=== PATIENT | female | born 1960 | race Caucasian/White ===

== ENCOUNTER 2017-07-30 08:00 | Inpatient (IN) | payer OTHER ==
[2017-07-30] MEDS ORDERED: GABAPENTIN 300 MG CAPSULE (FP) ONE (10:32)
[2017-07-30] MEDS ORDERED: CELECOXIB 200 MG CAPSULE ONE (10:33)
[2017-07-30 10:42] VITALS: BMI 27.6
[2017-07-30] MEDS ORDERED: GABAPENTIN 300 MG CAPSULE (FP) PO ONE ×2 (10:50→11:45)
[2017-07-30] MEDS ORDERED: DEXAMETHASONE SOD PHOSPHATE/PF 10 MG/ML SDV ONE (10:53)
[2017-07-30] MEDS ORDERED: MIDAZOLAM HCL 2 MG/2 ML SINGLE DOSE VIAL ONE ×2 (10:53→14:06)
[2017-07-30] MEDS ORDERED: SODIUM CHLORIDE 0.9% P/F 10 ML VIAL IJ ONE (10:54)
[2017-07-30] MEDS ORDERED: ROPIVACAINE HCL 0.5% 30ML VIAL ONE (10:54)
[2017-07-30] MEDS ORDERED: CELECOXIB 200 MG CAPSULE PO ONE (11:45)
[2017-07-30] MEDS ORDERED: BUPIVACAINE HCL/PF 0.5% (5MG/ML) 10 ML VIAL ONE (12:12)
[2017-07-30] MEDS ORDERED: VANCOMYCIN 1,000 MG VIAL (RESTRICTED TO ID ONLY) ONE (14:06)
[2017-07-30] MEDS ORDERED: TRANEXAMIC ACID 1000 MG/10 ML VIAL ONE ×2 (14:12→15:16)
[2017-07-30] MEDS ORDERED: ceFAZolin SODIUM 1 GM VIAL ONE (15:25)
[2017-07-30] MEDS ORDERED: MAG HYDROX/AL HYDROX/SIMETH 30 ML UNIT-DOSE CUP PO PRN (16:49)
[2017-07-30] MEDS ORDERED: VANCOMYCIN 1,250 MG in DEXTROSE 5%-WATER - 250 ML IVPB ONE (16:49)
[2017-07-30] MEDS ORDERED: ONDANSETRON 4 MG/2 ML VIAL IVPUSH PRN (16:49)
[2017-07-30] MEDS ORDERED: DEXAMETHASONE SOD PHOSPHATE 4 MG/1 ML VIAL ONE (16:49)
[2017-07-30] MEDS ORDERED: MAGNESIUM HYDROX 2400MG/30ML ORAL SUSPENSION 30 ML CUP PO PRN (16:49)
[2017-07-30] MEDS ORDERED: ONDANSETRON 4 MG/2 ML VIAL ONE (16:49)
--- NOTE | 2017-07-30 16:54 | OP ---
Operative Note - Note: Operative Date: 07/30/17 Pre-Operative Diagnosis: Left knee DJD Operation: Left total knee replacement Implants: [employer] [place] Tri[employer] PS Cemented. Femur - 4. Tibia - 5. Poly - 9mm. Patella - 27mm Post-Operative Diagnosis: Same as Pre-op Surgeon: Renny Alan Applications Coordinator: Rowdy Alan Anesthesia: Spinal Operative Report Dictated: Yes
[2017-07-30] MEDS ORDERED: LACTATED RINGERS SOLUTION 1,000 ML IV SCH (17:00)
[2017-07-30] MEDS ORDERED: oxyCODONE HCL 5 MG TABLET PO PRN (17:00)
[2017-07-30] MEDS ORDERED: ACETAMINOPHEN 325 MG TABLET (FP) ONE (17:37)
[2017-07-30] MEDS ORDERED: ACETAMINOPHEN 325 MG TABLET (FP) PO ONE (17:47)
[2017-07-30] MEDS: oxyCODONE HCL 5 MG TABLET PO PRN ×2 (19:52→23:56)
[2017-07-30] MEDS: ASPIRIN 325 MG TABLET PO SCH (21:48)
[2017-07-30] MEDS: GABAPENTIN 300 MG CAPSULE (FP) PO SCH (21:48)
[2017-07-30] MEDS: oxyCODONE HCL 10 MG SUSTAINED ACTING TABLET PO SCH (21:48)
[2017-07-30] MEDS: ACETAMINOPHEN 325 MG TABLET (FP) PO SCH (21:53)
[2017-07-30] MEDS: SENNOSIDES/DOCUSATE COMBO (SENNA PLUS) TABLET (UD) PO SCH (21:53)
[2017-07-30] MEDS ORDERED: CEFAZOLIN 1 GM PUSH 1 GM/10 ML DISP.SYRIN IVPUSH SCH (22:00)
[2017-07-30] MEDS: CEFAZOLIN 1 GM/D5W 1 GM/50 ML BAG IVPB SCH (22:59)
--- NOTE | 2017-07-31 00:02 | CONSULT ---
Consultation: REQUESTING PROVIDER: Dr. Alan CONSULT REQUEST: We have been asked to medically evaluate this patient for ( Medical Management). HISTORY OF PRESENT ILLNESS: This is a 56 y/o woman with a PMHx of: GERD, DJD. Patient is s/p L-TKR POD #0. Patient reports having elective surgery to her L-knee secondary to DJD. Patient reports having tightness with mild discomfort to her L- knee. Patient denies numbness or tingling to her leg/foot. Patient reports ambulating to the bathroom with nursing assistance and her walker. Patient has passed flatulence, no BM since surgery. Patient reports tolerating food and po liquids. Patient denies fever, chills, cough, SOB, CP, palpitations, AP, N/V/D, constipation, dysuria. Past Medical History: GERD OA DJD Past Surgical History: Cholecystectomy Cervical Spine L- Foot Social History: Tobacco: Former Alcohol: Socially Drugs: Marijuana Allergies: Allergy/AdvReac Type Severity Reaction Status Date / Time codeine Allergy Severe Itching Verified 07/30/17 10:52 oxycodone AdvReac Intermediate Itching Verified 07/30/17 10:52 Home Medications: Medication Instructions Recorded Oxycodone HCl/Acetaminophen 1 each PO ASDIR PRN 07/22/17 [Percocet 10-325 mg Tablet] REVIEW OF SYSTEMS: CONSTITUTIONAL: Absent: fever, chills, diaphoresis, generalized weakness, malaise, loss of appetite, weight change HEENT: Absent: rhinorrhea, nasal congestion, throat pain, throat swelling, difficulty swallowing, mouth swelling, ear pain, eye pain, visual changes CARDIOVASCULAR: Absent: chest pain, syncope, palpitations, irregular heart rate, lightheadedness , peripheral edema RESPIRATORY: Absent: cough, shortness of breath, dyspnea with exertion, orthopnea, wheezing, stridor, hemoptysis GASTROINTESTINAL: Absent: abdominal pain, abdominal distension, nausea, vomiting, diarrhea, constipation, melena, hematochezia GENITOURINARY: Absent: dysuria, frequency, urgency, hesitancy, hematuria, flank pain, genital pain MUSCULOSKELETAL: arthralgia, right knee pain Absent: myalgia, joint swelling, back pain, neck pain SKIN: Absent: rash, itching, pallor HEMATOLOGIC/IMMUNOLOGIC: Absent: easy bleeding, easy bruising, lymphadenopathy, frequent infections ENDOCRINE: Absent: unexplained weight gain, unexplained weight loss, heat intolerance, cold intolerance NEUROLOGIC: Absent: headache, focal weakness or paresthesias, dizziness, unsteady gait, seizure, mental status changes, bladder or bowel incontinence PSYCHIATRIC: Absent: anxiety, depression, suicidal or homicidal ideation, hallucinations. PHYSICAL EXAMINATION Vital Signs - 24 hr 07/30/17 07/30/17 07/30/17 10:38 16:49 16:50 Temperature 98.5 F 97.8 F Pulse Rate 72 54 L 52 L Respiratory 18 18 18 Rate Blood Pressure 185/91 157/89 160/80 O2 Sat by Pulse 99 99 Oximetry (%) 07/30/17 07/30/17 07/30/17 16:55 17:00 17:15 Temperature Pulse Rate 71 59 L 47 L Respiratory 18 18 18 Rate Blood Pressure 164/87 169/80 146/82 O2 Sat by Pulse 99 98 100 Oximetry (%) 07/30/17 07/30/17 07/30/17 17:30 17:45 18:00 Temperature Pulse Rate 50 L 61 58 L Respiratory 18 18 18 Rate Blood Pressure 139/80 127/87 134/80 O2 Sat by Pulse 100 99 100 Oximetry (%) 07/30/17 07/30/17 07/30/17 18:15 18:26 18:28 Temperature Pulse Rate 54 L 53 L 53 L Respiratory 18 18 18 Rate Blood Pressure 138/80 151/77 151/77 O2 Sat by Pulse 95 96 Oximetry (%) 07/30/17 19:00 Temperature 97.9 F Pulse Rate 62 Respiratory 18 Rate Blood Pressure 135/76 O2 Sat by Pulse 96 Oximetry (%) GENERAL: Awake, alert, and fully oriented, in no acute distress. HEAD: Normal with no signs of trauma. EYES: Pupils equal, round and reactive to light, extraocular movements intact, sclera anicteric, conjunctiva clear. No lid lag. EARS, NOSE, THROAT: Ears normal, nares patent, oropharynx clear without exudates. Moist mucous membranes. NECK: Normal range of motion, supple without lymphadenopathy, JVD, or masses. LUNGS: Breath sounds equal, clear to auscultation bilaterally. No wheezes, and no crackles. No accessory muscle use. HEART: Regular rate and rhythm, normal S1 and S2 without murmur, rub or gallop. ABDOMEN: Soft, nontender, not distended, normoactive bowel sounds, no guarding, no rebound, no masses. No hepatomegaly or splenomegaly. MUSCULOSKELETAL: Normal range of motion at RUE, LUE, RLE joints. No bony deformities or tenderness. No CVA tenderness. LROM at LLE., +surgical dressing dry and intact, icepack. UPPER EXTREMITIES: 2+ pulses, warm, well-perfused. No cyanosis. No clubbing. Cap refill <2 seconds. No peripheral edema. LOWER EXTREMITIES: 2+ pulses, warm, well-perfused. No calf tenderness. No peripheral edema. NEUROLOGICAL: Cranial nerves II-XII intact. Normal speech. Gait not observed. PSYCHIATRIC: Cooperative. Good eye contact. Appropriate mood and affect. SKIN: Warm, dry, normal turgor, no rashes or lesions noted. Active Medications Generic Name Dose Route Start Last Admin Trade Name Freq PRN Reason Stop Dose Admin Acetaminophen 650 mg 07/30/17 18:00 07/30/17 21:53 Tylenol - PO 650 mg QID CLINT Administration Al Hydroxide/Mg Hydroxide 30 ml 07/30/17 16:49 Mylanta Oral Suspension - PO Q4H PRN DYSPEPSIA Aspirin 325 mg 07/30/17 22:00 07/30/17 21:48 Asa - PO 325 mg BID CLINT Administration Fentanyl 50 mcg 07/30/17 17:00 Sublimaze Injection - IVPUSH [id number] PRN PAIN Gabapentin 300 mg 07/30/17 22:00 07/30/17 21:48 Neurontin - PO 300 mg BID CLINT Administration Lactated Ringer's 1,000 mls @ 125 mls/hr 07/30/17 17:00 Lactated Ringers Solution IV 07/31/17 06:00 ASDIR CLINT Vancomycin HCl 1,250 mg/ 250 mls @ 166.667 mls/hr 07/31/17 02:00 Dextrose IVPB 07/31/17 03:29 ONCE ONE Protocol Cefazolin Sodium 1 gm in 50 mls @ 100 mls/hr 07/30/17 22:45 07/30/17 22:59 Ancef 1 Gm Premixed Ivpb - IVPB 07/31/17 07:14 100 mls/hr Q8H CLINT Administration Magnesium Hydroxide 30 ml 07/30/17 16:49 Milk Of Magnesia - PO PRN PRN CONSTIPATION Multivitamins/Minerals/Vitamin C 1 tab 07/31/17 10:00 Tab-A-Vit - PO DAILY CLINT Ondansetron HCl 4 mg 07/30/17 16:49 Zofran Injection IVPUSH Q6H PRN NAUSEA Oxycodone HCl 10 mg 07/30/17 17:00 07/30/17 23:56 Roxicodone - PO 10 mg Q3H PRN Administration PAIN LEVEL 6-10 Oxycodone HCl 10 mg 07/30/17 22:00 07/30/17 21:48 Oxycontin - PO 08/02/17 17:01 10 mg BID CLINT Administration Pantoprazole Sodium 40 mg 07/31/17 10:00 Protonix - PO DAILY CLINT Senna/Docusate Sodium 1 tablet 07/30/17 22:00 07/30/17 21:53 Pericolace - PO 1 tablet BID CLINT Administration ASSESSMENT/PLAN: 1. s/p Left Total Knee Replacement - Continue ortho regimen - PT - Incentive Spirometry - Monitor CBC, BMP in am - Oxycodone prn- (patient reports to nurse she is on Oxycodone and takes benadryl prn for itching- denies anaphylaxis) - DVT/PPI prophylaxis 2. GERD - Continue PPI Dispo: We will continue to follow the patient. Thank you for this consultative opportunity. Problem List - Problems (1) Status post left knee replacement Code(s): Z96.652 - PRESENCE OF LEFT ARTIFICIAL KNEE JOINT (2) DJD (degenerative joint disease) Code(s): M19.90 - UNSPECIFIED OSTEOARTHRITIS, UNSPECIFIED SITE (3) GERD (gastroesophageal reflux disease) Code(s): K21.9 - GASTRO-ESOPHAGEAL REFLUX DISEASE WITHOUT ESOPHAGITIS (4) DVT prophylaxis Code(s): RNN5456 - Visit type - Emergency Visit Emergency Visit: Yes ED Registration Date: 07/30/17 Care time: The patient presented to the Emergency Department on the above date and was hospitalized for further evaluation of their emergent condition. - New Patient This patient is new to me today: Yes Date on this admission: 07/30/17 - Critical Care Critical Care patient: No
[2017-07-31] MEDS ORDERED: VANCOMYCIN 1,250 MG in DEXTROSE 5%-WATER - 250 ML IVPB ONE (02:00)
[2017-07-31] MEDS: oxyCODONE HCL 5 MG TABLET PO PRN ×5 (03:03→17:12)
[2017-07-31] MEDS: CEFAZOLIN 1 GM/D5W 1 GM/50 ML BAG IVPB SCH (06:10)
--- NOTE | 2017-07-31 06:46 | OP ---
DATE OF OPERATION: 07/30/2017 SURGEON: Renny Alan MD AGGREGATE CONVEYOR OPERATOR: Rowdy Alan MD PREOPERATIVE DIAGNOSIS: Tricompartment osteoarthritis, left knee. POSTOPERATIVE DIAGNOSIS: Tricompartment osteoarthritis, left knee. OPERATION PERFORMED: Left posterior-stabilized, cemented total knee arthroplasty ([place] Triathlon). ANESTHESIA: Spinal with conscious sedation and adductor canal block. TOURNIQUET TIME: 90 minutes. DESCRIPTION OF PROCEDURE: Patient correctly identified, brought into the operating room. The left lower extremity was prepped, free draped in the routine manner with Betadine scrub solution, wiped off with alcohol, DuraPrep applied. Midline incision utilized. The dissection was taken through the skin and subcutaneous tissue down to the quadriceps tendon. The tendon was split longitudinally, and a medial parapatellar incision utilized around the patella to expose the arthritic knee. Gross tricompartmental arthritis was noted. The patella was capsized laterally. The cruciate ligaments were transected. The proximal tibia dissected appropriately subperiosteally of the medial side. The patella was cut free hand from patellar ligament to quadriceps tendon. The appropriate jig was applied for a 27-mm patella button. The tibia was cut to neutral. The femur was cut using the appropriate jig system. The sizings were as follows: Femur size 4, tibia size 5, and a size 9 polyethylene spacer and the trialing components gave full extension, full flexion, complete stability in the coronal and sagittal plane at both of these levels. All bone cuts were made with the jig system. The mechanical axis restored, and we proximalized the joint line 2 mm because of poor bone bed for cementation on the lateral side. This required more bone in order to have cementation appropriately. The cementing was in 1 stage, femur, patella and tibia. Once this had been performed, the wounds were thoroughly lavaged. All extraneous cement was removed. Patella tracking was normal with a negative thumb test, and the ligaments coronal and sagittal plain, was completely stable throughout all ranges of motion in both the coronal and sagittal planes. A 9-mm definitive polyethylene posterior-stabilized implant inserted. No complications. The wounds were closed as follows: Quadriceps tendon, fascia ends, parapatellar tendon 1 Vicryl, subcutaneous 1 and 2-0 Vicryl, skin 3-0 Monocryl with Steri-Strips. No drains. Operation went well. No complications. MD YIFAN Mas/[id number]
[2017-07-31 08:27] LABS: MCH 29.6 pg (25.7-33.7); MEAN CELL VOLUME 87.1 fl (80-96); MEAN PLT VOLUME 10.7 fl (7.5-11.1); PLATELET COUNT 202 K/MM3 (134-434); RDW 13.1 % (11.6-15.6); WHITE BLOOD COUNT 16.4 K/mm3 (4.0-10.8)
[2017-07-31 08:33] LABS: ANION GAP 6 (8-16); CALCIUM 8.8 mg/dl (8.4-10.2); CO2 26 mmol/L (22-28); CREATININE 0.6 mg/dl (0.6-1.3); GLUCOSE,RANDOM 130 mg/dl (74-106)
[2017-07-31] MEDS: ASPIRIN 325 MG TABLET PO SCH ×2 (09:06→21:21)
[2017-07-31] MEDS: SENNOSIDES/DOCUSATE COMBO (SENNA PLUS) TABLET (UD) PO SCH ×2 (09:06→21:21)
[2017-07-31] MEDS: oxyCODONE HCL 10 MG SUSTAINED ACTING TABLET PO SCH ×2 (09:06→21:22)
[2017-07-31] MEDS: GABAPENTIN 300 MG CAPSULE (FP) PO SCH ×2 (09:06→21:21)
[2017-07-31] MEDS: MULTIVITAMINS (DAILY MVI) TABLET (FP) PO SCH (09:07)
[2017-07-31] MEDS: PANTOPRAZOLE 40 MG TABLET (FP) PO SCH (09:07)
[2017-07-31] MEDS: ACETAMINOPHEN 325 MG TABLET (FP) PO SCH ×4 (09:08→21:22)
--- NOTE | 2017-07-31 09:32 | PN ---
Physical Exam: SUBJECTIVE: Patient seen and examined, reports pain to left knee, denies any paresthesia to the extremity OBJECTIVE:This is a 56 y/o woman with a PMHx of: GERD, DJD, patient is s/p left TKR, post op day 1, Dr Alan Vital Signs Period Temp Pulse Resp BP Sys/Wallace Pulse Ox Last 24 Hr 97.8 F-98.5 F 47-98 18-18 127-185/76-91 95-100 GENERAL: The patient is awake, alert, and fully oriented, in no acute distress. HEAD: Normal with no signs of trauma. EYES: PERRL, extraocular movements intact, sclera anicteric, conjunctiva clear. No ptosis. ENT: Ears normal, nares patent, oropharynx clear without exudates, moist mucous membranes. NECK: Trachea midline, full range of motion, supple. LUNGS: Breath sounds equal, clear to auscultation bilaterally, no wheezes, no crackles, no accessory muscle use. HEART: Regular rate and rhythm, S1, S2 without murmur, rub or gallop. ABDOMEN: Soft, nontender, nondistended, normoactive bowel sounds, no guarding, no rebound, no hepatosplenomegaly, no masses. EXTREMITIES: 2+ pulses, warm, well-perfused, no edema. LEFT LOWER EXTREMITY: dressing cdi, scd/meaghan less than 3 second capillary refill , + 3 pedal pulse NEUROLOGICAL: Cranial nerves II through XII grossly intact. Normal speech, gait not observed. PSYCH: Normal mood, normal affect. SKIN: Warm, dry, normal turgor, no rashes or lesions noted Laboratory Results - last 24 hr 07/31/17 07/31/17 07:00 07:00 WBC 16.4 H RBC 4.46 Hgb 13.2 Hct 38.8 MCV 87.1 MCH 29.6 MCHC 34.0 RDW 13.1 Plt Count 202 MPV 10.7 Sodium 138 Potassium 4.4 Chloride 106 Carbon Dioxide 26 Anion Gap 6 L BUN 11 Creatinine 0.6 Random Glucose 130 H Calcium 8.8 Active Medications Generic Name Dose Route Start Last Admin Trade Name Freq PRN Reason Stop Dose Admin Acetaminophen 650 mg 07/30/17 18:00 07/31/17 09:08 Tylenol - PO 650 mg QID CLINT Administration Al Hydroxide/Mg Hydroxide 30 ml 07/30/17 16:49 Mylanta Oral Suspension - PO Q4H PRN DYSPEPSIA Aspirin 325 mg 07/30/17 22:00 07/31/17 09:06 Asa - PO 325 mg BID CLINT Administration Fentanyl 50 mcg 07/30/17 17:00 Sublimaze Injection - IVPUSH [id number] PRN PAIN Gabapentin 300 mg 07/30/17 22:00 07/31/17 09:06 Neurontin - PO 300 mg BID CLINT Administration Ketorolac Tromethamine 30 mg 07/31/17 09:28 Toradol Injection - IVPUSH 07/31/17 09:29 ONCE ONE Magnesium Hydroxide 30 ml 07/30/17 16:49 Milk Of Magnesia - PO PRN PRN CONSTIPATION Multivitamins/Minerals/Vitamin C 1 tab 07/31/17 10:00 07/31/17 09:07 Tab-A-Vit - PO 1 tab DAILY CLINT Administration Ondansetron HCl 4 mg 07/30/17 16:49 07/31/17 06:10 Zofran Injection IVPUSH 4 mg Q6H PRN Administration NAUSEA Oxycodone HCl 10 mg 07/30/17 17:00 07/31/17 09:07 Roxicodone - PO 10 mg Q3H PRN Administration PAIN LEVEL 6-10 Oxycodone HCl 10 mg 07/30/17 22:00 07/31/17 09:06 Oxycontin - PO 08/02/17 17:01 10 mg BID CLINT Administration Pantoprazole Sodium 40 mg 07/31/17 10:00 07/31/17 09:07 Protonix - PO 40 mg DAILY CLINT Administration Senna/Docusate Sodium 1 tablet 07/30/17 22:00 07/31/17 09:06 Pericolace - PO 1 tablet BID CLINT Administration ASSESSMENT/PLAN: 1. s/p Left Total Knee Replacement - PT - Incentive Spirometry - reports inadequate pain relief, pt reports taking percocet daily for pain 10/ 325mg and smokes marijuanna daily, discussed with anesthsia, oxycontin was increased to 15mg per Dr Rodriguez - Monitor CBC, BMP in am 2. GERD - Continue PPI dispo: We will continue to follow the patient. Thank you for this consultative opportunity. Visit type - Emergency Visit Emergency Visit: No - New Patient This patient is new to me today: Yes Date on this admission: 07/31/17 - Critical Care Critical Care patient: No - Discharge Referral Referred to [facility] Med P.C.: No
[2017-07-31] MEDS ORDERED: KETOROLAC TROMETHAMINE 30 MG/1 ML VIAL IVPUSH ONE (10:00)
--- NOTE | 2017-07-31 10:56 | PN ---
Progress Note (short form) - Note Progress Note: 56F POD1 s/p left TKR under spinal anesthetic with peripheral nerve blocks doing well. Given that patient usually takes narcotics at home, will increase oxycodone prn dose. Sensory and motor function intact in bilateral lower extremities. Pt does not report any anesthetic complications.
[2017-08-01 02:20] VITALS: TEMP 98.5
[2017-08-01 06:27] VITALS: BP 152/80; PULSE 82
[2017-08-01] MEDS: oxyCODONE HCL 5 MG TABLET PO PRN (07:49)
[2017-08-01 08:20] LABS: MCH 29.8 pg (25.7-33.7); MCHC 34.1 g/dl (32.0-36.0); MEAN CELL VOLUME 87.4 fl (80-96); MEAN PLT VOLUME 10.6 fl (7.5-11.1); PLATELET COUNT 186 K/MM3 (134-434); RDW 13.4 % (11.6-15.6)
[2017-08-01] MEDS: MULTIVITAMINS (DAILY MVI) TABLET (FP) PO SCH (09:08)
[2017-08-01] MEDS: PANTOPRAZOLE 40 MG TABLET (FP) PO SCH (09:08)
[2017-08-01] MEDS: SENNOSIDES/DOCUSATE COMBO (SENNA PLUS) TABLET (UD) PO SCH (09:08)
[2017-08-01] MEDS: GABAPENTIN 300 MG CAPSULE (FP) PO SCH (09:08)
[2017-08-01] MEDS: ACETAMINOPHEN 325 MG TABLET (FP) PO SCH (09:08)
[2017-08-01] MEDS: ASPIRIN 325 MG TABLET PO SCH (09:09)
[2017-08-01] MEDS: oxyCODONE HCL 10 MG SUSTAINED ACTING TABLET PO SCH (09:09)
--- NOTE | 2017-08-01 10:51 | DS ---
Physical Exam: SUBJECTIVE: Patient seen and examined,ambulatory throughout nursing station with walker, reports minimal pain to the left lower extremity, patient denies any paresthesia. tolerating meals, denies any chest pain, shortness of breath, nausea or vomiting. OBJECTIVE: Patient is a 56 y/o woman with a PMHx of: GERD, DJD. Patient is s/ p L-TKR POD #2, Dr Alan, spinal anesthesia. Patient reports having elective surgery to her L-knee secondary to DJD. Vital Signs Temperature 98.5 F 08/01/17 06:00 Pulse Rate 82 08/01/17 06:00 Respiratory Rate 18 08/01/17 07:50 Blood Pressure 152/80 08/01/17 06:00 O2 Sat by Pulse Oximetry (%) 94 L 08/01/17 02:19 PHYSICAL EXAM GENERAL: The patient is awake, alert, and fully oriented, in no acute distress. HEAD: Normal with no signs of trauma. EYES: PERRL, extraocular movements intact, sclera anicteric, conjunctiva clear. ENT: Ears normal, nares patent, oropharynx clear without exudates, moist mucous membranes. NECK: Trachea midline, full range of motion, supple. LUNGS: Breath sounds equal, clear to auscultation bilaterally, no wheezes, no crackles, no accessory muscle use. HEART: Regular rate and rhythm, S1, S2 without murmur, rub or gallop. ABDOMEN: Soft, nontender, nondistended, normoactive bowel sounds, no guarding, no rebound, no hepatosplenomegaly, no masses. EXTREMITIES: 2+ pulses, warm, well-perfused, no edema. LEFT LOWER EXTREMITY: AGUACEL dressing intact, no drainage noted, +3 pedal pulse, less than 3 second capillary refill, NEUROLOGICAL: Cranial nerves II through XII grossly intact. Normal speech, gait not observed. PSYCH: Normal mood, normal affect. SKIN: Warm, dry, normal turgor, no rashes or lesions noted. LABS CBC,CMP WBC 15.0 K/mm3 (4.0-10.8) H 08/01/17 07:00 RBC 4.34 M/mm3 (3.60-5.2) 08/01/17 07:00 Hgb 13.0 GM/dl (10.7-15.3) 08/01/17 07:00 Hct 38.0 % (32.4-45.2) 08/01/17 07:00 MCV 87.4 fl (80-96) 08/01/17 07:00 MCH 29.8 pg (25.7-33.7) 08/01/17 07:00 MCHC 34.1 g/dl (32.0-36.0) 08/01/17 07:00 RDW 13.4 % (11.6-15.6) 08/01/17 07:00 Plt Count 186 K/MM3 (134-434) 08/01/17 07:00 MPV 10.6 fl (7.5-11.1) 08/01/17 07:00 Sodium 138 mmol/L (136-145) 07/31/17 07:00 Potassium 4.4 mmol/L (3.5-5.1) 07/31/17 07:00 Chloride 106 mmol/L (98-107) 07/31/17 07:00 Carbon Dioxide 26 mmol/L (22-28) 07/31/17 07:00 Anion Gap 6 (8-16) L 07/31/17 07:00 BUN 11 mg/dl (7-18) 07/31/17 07:00 Creatinine 0.6 mg/dl (0.6-1.3) 07/31/17 07:00 Random Glucose 130 mg/dl (74-106) H 07/31/17 07:00 Calcium 8.8 mg/dl (8.4-10.2) 07/31/17 07:00 HOSPITAL COURSE: The patient was admitted to the Med-Surg Unit after an elective surgery, left total knee replacement, on 07/30/17. On post operative day 1, the patient ambulated the hallways with assistance. Narcotic and non-narcotic pain management control was achieved with an oral and IV approach. POD #1. austin- operative IV ABX were administered. DVT prophylaxis was achieved with SCDs and early ambulation. The patient ambulated with Physical Therapy and no services were recommended upon discharge. Narcotic scripts and or muscle relaxants were checked with ALS COMMERCIAL PRODUCTION EDITOR prior to escibe. The discharge instructions and an oral pain management plan were reviewed with the patient. All questions answered. Date of Admission:07/30/17 Date of Discharge: 12/01/17 Minutes to complete discharge: 45 Visit type - Case Type Case Type: Scheduled Admission - Emergency Emergency Visit: No - New patient This patient is new to me today: No - Critical Care Critical Care patient: No
--- NOTE | 2017-08-01 15:17 | PATH ---
Surgical Pathology Report Patient Name: DARLNIE JOSHI Med. Rec. #: [id number] /Age/Gender: 1960 (Age: 56) / F Account: [id number] Location: [facility] MED-SURG Taken: 07/30/2017 Received: 07/30/2017 Reported: 08/01/2017 Physicians: Rowdy Alan M.D. Specimen(s) Received LEFT KNEE BONES Clinical History Left knee osteoarthritis Final Diagnosis BONE AND SOFT TISSUE, LEFT KNEE, REPLACEMENT: DEGENERATIVE JOINT DISEASE. Electronically Signed Karsten Smith M.D. Gross Description Received in formalin labeled "left knee bones," is a 13.0 x 11.0 x 2.2 cm aggregate of multiple hilliard, irregular portions of bone and soft tissue. The tibial plateau measures 8.0 x 5.4 x 1.5 cm. There no areas of eburnation identified. The articular surfaces are hilliard-yellow and focally granular. The underlying trabecular bone is yellow and hard. Wood Shop Teacher sections are submitted in one cassette, following decalcification. 07/31/201707/31/2017
== END 2017-08-01 12:16 | disposition home health service (06) | DRG 470 ==
LOC: FM/S 10:10
PROVIDERS: ADMIT Orthopaedic Surgery Orthopaedic Surgery of the Spine; ATTEND Orthopaedic Surgery Orthopaedic Surgery of the Spine
PROC: 0SRD0J9 Replacement of Left Knee Joint with Synthetic Substitute, Cemented, Open Approach (ICD-10-PCS; principal; 2017-07-30 12:30)
DX: M17.12 Unilateral primary osteoarthritis, left knee (principal); K21.9 Gastro-esophageal reflux disease without esophagitis; F12.10 Cannabis abuse, uncomplicated; Z87.891 Personal history of nicotine dependence
CPT/HCPCS: 36415; 73560-TC-LT; 80048; 85027; 86803; 88304-TC; 88311-TC; 94010; 94760; 97116-GP; 97162-GP

== ENCOUNTER 2017-10-20 06:06 | Day surgery (SDC) | payer OTHER ==
[2017-10-17 10:49] VITALS: BMI 27.8
[2017-10-20] MEDS ORDERED: PROPOFOL 20 ML ONE ×2 (08:07)
[2017-10-20 09:23] VITALS: TEMP 97.9
[2017-10-20] MEDS ORDERED: ONDANSETRON 4 MG/2 ML VIAL IVPUSH PRN (09:25)
[2017-10-20] MEDS ORDERED: LACTATED RINGERS SOLUTION 1,000 ML IV SCH (09:30)
[2017-10-20] MEDS ORDERED: KETOROLAC TROMETHAMINE 30 MG/1 ML VIAL ONE (10:05)
[2017-10-20] MEDS ORDERED: KETOROLAC TROMETHAMINE 30 MG/1 ML VIAL IVPUSH ONE ×2 (10:10→10:45)
[2017-10-20] MEDS ORDERED: oxyCODONE HCL 5 MG TABLET PO PRN (10:28)
[2017-10-20] MEDS ORDERED: oxyCODONE HCL 5 MG TABLET ONE (10:49)
[2017-10-20] MEDS ORDERED: oxyCODONE HCL 5 MG TABLET PO ONE (10:54)
[2017-10-20 12:08] VITALS: BP 170/80; PULSE 80
--- NOTE | 2017-10-20 16:42 | OP ---
DATE OF OPERATION: 10/20/2017 PREOPERATIVE DIAGNOSIS: Arthrofibrosis 3 months status post left total knee arthroplasty. POSTOPERATIVE DIAGNOSIS: Arthrofibrosis 3 months status post left total knee arthroplasty. OPERATIVE PERFORMED: Manipulation under general anesthesia. SURGEON: Renny Alan M.D. OPERATION DETAILS: Patient was given general anesthesia, left lower extremity was inspected. Slight warmth of the tissues noted. No drainage. No overt inflammatory change except for some postoperative synovial thickening. This is evident by blunting of the patellar margin. I went ahead and manipulated this under general anesthesia. Adhesions were to be broken. Range of movement from 0 to 60 degrees pre- manipulation to 0 to 120 degrees post-manipulation. Stable to varus and valgus stress throughout. Patient tolerated the procedure well for early mobilization postoperative. Renny Alan MD [id number] MTDD
== END 2017-10-20 12:12 | disposition home or self-care (01) ==
LOC: JASU-SURG 06:06
PROVIDERS: ATTEND Orthopaedic Surgery Orthopaedic Surgery of the Spine
PROC: 0SNDXZZ Release Left Knee Joint, External Approach (ICD-10-PCS; principal; 2017-10-20 08:00)
DX: M24.662 Ankylosis, left knee (principal); Z96.652 Presence of left artificial knee joint
CPT/HCPCS: 94760

== ENCOUNTER 2018-01-09 05:43 | Day surgery (SDC) | payer OTHER ==
[2018-01-08 15:32] VITALS: BMI 27.5
[2018-01-09] MEDS ORDERED: SUCCINYLCHOLINE CHLORIDE 200 MG/10 ML VIAL ONE (07:24)
[2018-01-09] MEDS ORDERED: PROPOFOL 20 ML ONE ×3 (07:24→07:25)
[2018-01-09] MEDS ORDERED: MIDAZOLAM HCL 2 MG/2 ML SINGLE DOSE VIAL ONE (07:24)
[2018-01-09] MEDS ORDERED: BUPIVACAINE HCL 0.25% 125 MG/50 ML VIAL ONE (07:32)
[2018-01-09] MEDS ORDERED: EPINEPHrine 1:1,000 1 MG/1 ML - 30ML VIAL (INJECTION) ONE (07:32)
[2018-01-09] MEDS ORDERED: methylPREDNISolone ACET (DEPO) 40 MG/1 ML VIAL ONE (07:32)
[2018-01-09] MEDS ORDERED: ONDANSETRON 4 MG/2 ML VIAL ONE ×2 (08:36→09:03)
[2018-01-09] MEDS ORDERED: DEXAMETHASONE SOD PHOSPHATE 4 MG/1 ML VIAL ONE (08:36)
[2018-01-09] MEDS ORDERED: diphenhydrAMINE HCL 25 MG CAPSULE (FP) PO PRN (09:07)
--- NOTE | 2018-01-09 09:07 | OP ---
Operative Note - Note: Operative Date: 01/09/18 Pre-Operative Diagnosis: Left TKA arthrofibrosis Operation: 1. Surgical arthroscopy left knee with synovial biopsy. 2. GENET left TKA Findings: Left TKA arthrofibrosis Post-Operative Diagnosis: Same as Pre-op Surgeon: Renny Alan Anesthesiologist/SOLUTION SPECIALIST: Greg Macedo Anesthesia: General Specimens Removed: Synovial biopsies Operative Report Dictated: Yes
[2018-01-09] MEDS ORDERED: oxyCODONE HCL 5 MG TABLET PO PRN ×2 (09:08)
[2018-01-09] MEDS ORDERED: ONDANSETRON 4 MG/2 ML VIAL IVPUSH PRN (09:08)
[2018-01-09] MEDS ORDERED: LACTATED RINGERS SOLUTION 1,000 ML IV SCH (09:15)
[2018-01-09] MEDS ORDERED: PATIENT'S OWN MEDICATION (NON-FORMULARY) (Ranitidine Hcl [Ranitidine Hcl] 300 MG) PO SCH (10:00)
[2018-01-09] MEDS ORDERED: PATIENT'S OWN MEDICATION (NON-FORMULARY) (Lisinopril/Hydrochlorothiazide [Lisinopril-Hctz PO SCH (10:00)
[2018-01-09 10:19] VITALS: TEMP 97.7
--- NOTE | 2018-01-09 10:44 | OP ---
DATE OF OPERATION: DATE OF DICTATION: 01/09/2018 SURGEON: Renny Alan MD PREOPERATIVE DIAGNOSIS: Arthrofibrosis, left knee, following a 6-month total knee arthroplasty. POSTOPERATIVE DIAGNOSIS: Arthrofibrosis, left knee, following a 6-month total knee arthroplasty. OPERATION PERFORMED: 1. Arthroscopy. 2. Arthroscopic biopsy, left knee. 3. Manipulation under anesthesia. ANESTHESIA: General. PROCEDURE: Patient correctly identified, brought into the operating room. Left lower extremity was prepped and freely draped in the routine manner with Betadine scrub and solution, wiped off with alcohol, DuraPrep applied. Timeout was called. Preoperative evaluation revealed a range of movement of about 30 to 60 degrees. The knee was indurated. The soft tissue bed was indurated significantly. In the supine position after full draping the arthroscopic portals were entered. I utilized a superolateral portal. The arthroscopic instrumentation was inserted into the joint. Diffuse synovitis noted throughout. Nothing specific that I could see. Difficult to pass the arthroscope beyond the suprapatellar pouch into the gutters on the left- and right-hand side because of a significant degree of fibrosis. There was no overt purulence. Using pituitary rongeurs multiple biopsies were taken from the suprapatellar pouch and the medial and lateral gutters. Accordingly these were sent for culture and sensitivity as well as histopathology. The knee was lavaged. Portals were closed with 3-0 nylon. The tourniquet was released and at that point just before tourniquet was released 1 g of Kefzol was given. Once the wound was closed with 3-0 nylon the knee was manipulated. Adhesions were broken and I was able to passively manipulate her both improving extension as well as flexion from 30 to 60 or 70 degrees to about 5 to 120 degrees. MD YIFAN Mas/[id number]
[2018-01-09 10:50] VITALS: BP 138/85; PULSE 56
--- NOTE | 2018-01-14 08:54 | PATH ---
Surgical Pathology Report Patient Name: DARLINE JOSHI [facility]. Rec. #: [id number] /Age/Gender: 1960 (Age: 57) / F Account: [id number] Location: [facility] Taken: 01/09/2018 Received: 01/09/2018 Reported: 01/14/2018 Physicians: Renny Alan M.D. Specimen(s) Received A: LEFT KNEE SYNOVIUM #1 B: LEFT KNEE SYNOVIUM #2 C: LEFT KNEE SYNOVIUM #3 D: LEFT KNEE SYNOVIUM #4 Clinical History Arthrofibrosis status post left total knee replacement Final Diagnosis A. LEFT KNEE SYNOVIUM #1, BIOPSY: SYNOVIAL TISSUE WITH FIBROSIS AND FEW HEMOSIDERIN LADEN MACROPHAGES. B. LEFT KNEE SYNOVIUM #2, BIOPSY: HYPERVASCULAR SYNOVIAL TISSUE WITH FIBROSIS. C. LEFT KNEE SYNOVIUM #3, BIOPSY: SYNOVIAL TISSUE WITH FIBROSIS AND FEW HEMOSIDERIN LADEN MACROPHAGES. D. LEFT KNEE SYNOVIUM #4, BIOPSY: SYNOVIAL TISSUE WITH FIBROSIS AND HEMOSIDERIN LADEN MACROPHAGES. Electronically Signed Brunilda Ga M.D. Gross Description A. Received in formalin labeled "left knee synovium #1," is a 0.6 cm in greatest dimension hilliard fragment of fibrous tissue. The specimen is submitted in toto in one cassette. B. Received in formalin labeled "left knee synovium #2," is a 0.2 cm in greatest dimension hilliard fragment of fibrous tissue. The specimen is submitted in toto in one cassette. C. Received in formalin labeled "left knee synovium #3," is a 0.3 cm in greatest dimension hilliard fragment of fibrous tissue. The specimen is submitted in toto in one cassette. D. Received in formalin labeled "left knee synovium #4," is a 0.3 cm in greatest dimension hilliard fragment of fibrous tissue. The specimen is submitted in toto in one cassette. 01/12/201801/12/2018
== END 2018-01-09 10:50 | disposition home or self-care (01) ==
LOC: FASU 05:43
PROVIDERS: ATTEND Orthopaedic Surgery Orthopaedic Surgery of the Spine
PROC: 0SSDXZZ Reposition Left Knee Joint, External Approach (ICD-10-PCS; 2018-01-09)
PROC: 0SBD4ZX Excision of Left Knee Joint, Percutaneous Endoscopic Approach, Diagnostic (ICD-10-PCS; principal; 2018-01-09 08:34)
DX: M24.662 Ankylosis, left knee (principal); M65.862 Other synovitis and tenosynovitis, left lower leg
CPT/HCPCS: 87070; 87075; 87102; 87116; 87186; 87205; 87206; 87210; 88304-TC; 94760

== ENCOUNTER 2018-02-25 05:57 | Inpatient (IN) | payer OTHER ==
[2018-02-16 15:56] VITALS: BMI 27.9
[2018-02-25] MEDS ORDERED: BUPIVACAINE HCL/PF (5 MG/ML) 30 ML VIAL IJ ONE (06:40)
[2018-02-25] MEDS ORDERED: SODIUM CHLORIDE 0.9% P/F 10 ML VIAL IJ ONE (06:40)
[2018-02-25] MEDS ORDERED: BUPIVACAINE LIPOSOME/PF (EXPAREL) 266 MG/20 ML VIAL ONE (06:40)
[2018-02-25] MEDS ORDERED: MIDAZOLAM HCL 2 MG/2 ML SINGLE DOSE VIAL ONE ×3 (06:40→15:03)
[2018-02-25] MEDS ORDERED: ceFAZolin SODIUM 1 GM VIAL ONE ×2 (07:18→11:04)
[2018-02-25] MEDS ORDERED: TRANEXAMIC ACID 1000 MG/10 ML VIAL ONE (07:18)
[2018-02-25] MEDS ORDERED: VANCOMYCIN 1,000 MG VIAL (RESTRICTED TO ID ONLY) ONE (07:18)
--- NOTE | 2018-02-25 07:22 | HP ---
History & Physical Update - History History: No Change - Physical Physical: No Change - Assessment Assessment: No Change - Plan Plan: No Change (H&P in chart from 02/16/2018)
[2018-02-25] MEDS ORDERED: TRANEXAMIC ACID 1000 MG/10 ML VIAL IVPUSH ONE (07:27)
[2018-02-25] MEDS ORDERED: BENZOIN/ALOE VERA/STORAX/TOLU 58 ML BOTTLE ONE (10:02)
[2018-02-25] MEDS ORDERED: PROPOFOL 20 ML ONE (10:25)
[2018-02-25] MEDS ORDERED: SUCCINYLCHOLINE CHLORIDE 200 MG/10 ML VIAL ONE (10:35)
[2018-02-25] MEDS ORDERED: MAG HYDROX/AL HYDROX/SIMETH 30 ML UNIT-DOSE CUP PO PRN (11:55)
[2018-02-25] MEDS ORDERED: ONDANSETRON 4 MG/2 ML VIAL IVPUSH PRN (11:55)
[2018-02-25] MEDS ORDERED: MAGNESIUM HYDROX 2400MG/30ML ORAL SUSPENSION 30 ML CUP PO PRN (11:55)
[2018-02-25] MEDS ORDERED: LACTATED RINGERS SOLUTION 1,000 ML IV SCH (12:00)
[2018-02-25] MEDS ORDERED: ACETAMINOPHEN 325 MG TABLET (FP) PO PRN (12:02)
[2018-02-25] MEDS ORDERED: HYDROmorphone HCL 2 MG TABLET PO PRN (12:33)
[2018-02-25] MEDS: ACETAMINOPHEN 325 MG TABLET (FP) PO SCH ×2 (13:00→17:51)
--- NOTE | 2018-02-25 14:23 | CONSULT ---
Consultation: REQUESTING PROVIDER: Dr chacko CONSULT REQUEST: We have been asked to medically evaluate this patient for medical management . HISTORY OF PRESENT ILLNESS: patient is a 57 y/o female with a past medical history of hypertension, DJD, and GERD. Patient is s/p left total knee replacment and revision REVIEW OF SYSTEMS: CONSTITUTIONAL: Absent: fever, chills, diaphoresis, generalized weakness, malaise, loss of appetite, weight change HEENT: Absent: rhinorrhea, nasal congestion, throat pain, throat swelling, difficulty swallowing, mouth swelling, ear pain, eye pain, visual changes CARDIOVASCULAR: Absent: chest pain, syncope, palpitations, irregular heart rate, lightheadedness , peripheral edema RESPIRATORY: Absent: cough, shortness of breath, dyspnea with exertion, orthopnea, wheezing, stridor, hemoptysis GASTROINTESTINAL: Absent: abdominal pain, abdominal distension, nausea, vomiting, diarrhea, constipation, melena, hematochezia GENITOURINARY: Absent: dysuria, frequency, urgency, hesitancy, hematuria, flank pain, genital pain MUSCULOSKELETAL: Present:left knee discomfort Absent: myalgia, arthralgia, joint swelling, back pain, neck pain SKIN: Absent: rash, itching, pallor HEMATOLOGIC/IMMUNOLOGIC: Absent: easy bleeding, easy bruising, lymphadenopathy, frequent infections ENDOCRINE: Absent: unexplained weight gain, unexplained weight loss, heat intolerance, cold intolerance NEUROLOGIC: Absent: headache, focal weakness or paresthesias, dizziness, unsteady gait, seizure, mental status changes, bladder or bowel incontinence PSYCHIATRIC: Absent: anxiety, depression, suicidal or homicidal ideation, hallucinations. PHYSICAL EXAMINATION Vital Signs - 24 hr 02/25/18 02/25/18 02/25/18 06:29 09:00 11:53 Temperature 97.7 F 97.6 F Pulse Rate 60 58 L Respiratory 18 20 18 Rate Blood Pressure 114/70 116/73 O2 Sat by Pulse 96 98 Oximetry (%) 02/25/18 02/25/18 02/25/18 11:58 12:03 12:08 Temperature 97.6 F Pulse Rate 58 L 52 L 53 L Respiratory 14 17 17 Rate Blood Pressure 133/72 113/70 110/68 O2 Sat by Pulse 98 98 96 Oximetry (%) 02/25/18 02/25/18 02/25/18 12:30 12:45 12:57 Temperature Pulse Rate 55 L 57 L 55 L Respiratory 17 18 20 Rate Blood Pressure 96/56 93/61 108/89 O2 Sat by Pulse 96 98 96 Oximetry (%) 02/25/18 02/25/18 13:15 14:01 Temperature 97.6 F Pulse Rate 58 L Respiratory 20 16 Rate Blood Pressure 113/63 O2 Sat by Pulse 98 Oximetry (%) GENERAL: Awake, alert, and fully oriented, in no acute distress. HEAD: Normal with no signs of trauma. EYES: Pupils equal, round and reactive to light, extraocular movements intact, sclera anicteric, conjunctiva clear. No lid lag. EARS, NOSE, THROAT: Ears normal, nares patent, oropharynx clear without exudates. Moist mucous membranes. NECK: Normal range of motion, supple without lymphadenopathy, JVD, or masses. LUNGS: Breath sounds equal, clear to auscultation bilaterally. No wheezes, and no crackles. No accessory muscle use. HEART: Regular rate and rhythm, normal S1 and S2 without murmur, rub or gallop. ABDOMEN: Soft, nontender, not distended, normoactive bowel sounds, no guarding, no rebound, no masses. No hepatomegaly or splenomegaly. MUSCULOSKELETAL: Normal range of motion at all joints. No bony deformities or tenderness. No CVA tenderness. UPPER EXTREMITIES: 2+ pulses, warm, well-perfused. No cyanosis. No clubbing. Cap refill <2 seconds. No peripheral edema. LOWER EXTREMITIES: 2+ pulses, warm, well-perfused. No calf tenderness. No peripheral edema. LEFT LOWER EXTREMITY: hemovac drain scant sangenous drainage, less than 3 second capillary refill, +3 pedal pulse, dressing scant bloody drainage noted meaghan/scd NEUROLOGICAL: Cranial nerves II-XII intact. Normal speech. Normal gait. PSYCHIATRIC: Cooperative. Good eye contact. Appropriate mood and affect. SKIN: Warm, dry, normal turgor, no rashes or lesions noted. Active Medications Generic Name Dose Route Start Last Admin Trade Name Freq PRN Reason Stop Dose Admin Acetaminophen 650 mg 02/25/18 12:45 02/25/18 13:00 Tylenol - PO 02/28/18 12:44 650 mg Q6H CLINT Administration Al Hydroxide/Mg Hydroxide 30 ml 02/25/18 11:55 Mylanta Oral Suspension - PO Q4H PRN DYSPEPSIA Aspirin 325 mg 02/25/18 22:00 Asa - PO BID [facility] Fentanyl 50 mcg 02/25/18 12:31 Sublimaze Injection - IVPUSH [id number] PRN PAIN-PACU ORDER X 4 DOSES ONLY Gabapentin 300 mg 02/25/18 22:00 Neurontin - PO BID [facility] Hydrochlorothiazide 12.5 mg 02/26/18 10:00 Hctz - PO DAILY [facility] Hydromorphone HCl 2 mg 02/25/18 12:33 Dilaudid - PO Q4H PRN PAIN LEVEL 4 - 6 Hydromorphone HCl 4 mg 02/25/18 12:33 Dilaudid - PO Q4H PRN PAIN LEVEL 7 - 10 Cefazolin Sodium 2 gm/ 100 mls @ 200 mls/hr 02/25/18 07:22 Dextrose IVPB 02/25/18 07:51 ONCE ONE Vancomycin HCl 1,000 mg/ 250 mls @ 250 mls/hr 02/25/18 07:22 Dextrose IVPB 02/25/18 08:21 ONCE ONE Protocol Cefazolin Sodium 1 gm in 50 mls @ 100 mls/hr 02/25/18 19:00 Ancef 1 Gm Premixed Ivpb - IVPB 02/26/18 03:29 Q8H [facility] Lactated Ringer's 1,000 mls @ 125 mls/hr 02/25/18 12:00 Lactated Ringers Solution IV 02/26/18 06:00 ASDIR [facility] Lisinopril 10 mg 02/26/18 10:00 Prinivil PO DAILY [facility] Magnesium Hydroxide 30 ml 02/25/18 11:55 Milk Of Magnesia - PO PRN PRN CONSTIPATION Multivitamins/Minerals/Vitamin C 1 tab 02/26/18 10:00 Tab-A-Vit - PO DAILY [facility] Ondansetron HCl 4 mg 02/25/18 11:55 Zofran Injection IVPUSH Q6H PRN NAUSEA Pantoprazole Sodium 40 mg 02/26/18 10:00 Protonix - PO DAILY [facility] Ranitidine HCl 300 mg 02/26/18 10:00 Zantac - PO DAILY [facility] Senna/Docusate Sodium 2 tablet 02/25/18 22:00 Pericolace - PO BID [facility] Tranexamic Acid 1,000 mg 02/25/18 07:27 Tranexamic Acid - IVPUSH 02/25/18 07:28 ONCE ONE ASSESSMENT/PLAN: 1) MS s/p left revision, total knee replacement - prn pain medication - physical therapy as per the orthopedist - monitor hgb, strict i/o 2) cardiovascular hypertension - continue lisinopril 3) gerd continue protonix Dispo: We will continue to follow the patient. Thank you for this consultative opportunity. Visit type - Emergency Visit Emergency Visit: No - New Patient This patient is new to me today: Yes Date on this admission: 02/25/18 - Critical Care Critical Care patient: No
[2018-02-25] MEDS ORDERED: HYDROmorphone HCL 2 MG TABLET PO ONE (16:15)
--- NOTE | 2018-02-25 17:15 | PN ---
Progress Note (short form) - Note Progress Note: 57F s/p revision RIGHT TKA POD #0. -Pain control. -DVT PPx: -Chemical: ASA 325mg PO BID x 6 weeks. -Mechanical: SCD's, YENI's. -Incentive spirometry. -PT/OT/Rehab, OOB. -Toe-Touch Weight Bearing Left Lower Extremity (TTWB LLE). -CPM 0-90 degrees. -f/u AM labs. -f/u trial of void. -Diet as tolerated. -Care per medical hospitalist team. -Discharge planning: f/u [facility] [place] Office Friday03/06/2018; call for appointment: . -Will follow. Renny Alan MD (Orthopaedic Surgery).
--- NOTE | 2018-02-25 17:19 | OP ---
Operative Note - Note: Operative Date: 02/25/18 Pre-Operative Diagnosis: Left TKA arthrofibrosis Operation: 1. Revision left TKA tibial component & polyethylene liner. 2. Tibial tubercle osteotomy & fixation Implants: [place] Tri[employer] Size #4 universal tibial baseplate w/14mm x 150mm stem. Polyethylene - 11mm Surgeon: Renny Alan Director Corporate Communications: Rowdy Alan Anesthesiologist/SWIMMING POOL SALESPERSON: Greg Macedo Anesthesia: Spinal Specimens Removed: Left knee tibial component & polyethylene liner Estimated Blood Loss (mls): 0 Drains & Tubes with Location: 1 x deep HemoVac Fluid Volume Replaced (mls): 1,000 Operative Report Dictated: Yes
[2018-02-25] MEDS ORDERED: LORazepam 0.5 MG TABLET PO PRN ×2 (17:57→18:04)
[2018-02-25] MEDS ORDERED: CEFAZOLIN 2 GM/D5W 2 GM/50 ML ML IVPB ONE (18:15)
[2018-02-25] MEDS: CEFAZOLIN 1 GM/D5W 1 GM/50 ML BAG IVPB SCH ×2 (18:21→18:35)
[2018-02-25] MEDS: VANCOMYCIN 1 GRAM (PRE-DOCKED) 1,000 MG/250 ML BAG IVPB ONE ×2 (18:23→18:39)
[2018-02-25] MEDS: SENNOSIDES/DOCUSATE COMBO (SENNA PLUS) TABLET (UD) PO SCH (21:37)
[2018-02-25] MEDS: ASPIRIN 325 MG TABLET PO SCH (21:37)
[2018-02-25] MEDS: GABAPENTIN 300 MG CAPSULE (FP) PO SCH (21:37)
[2018-02-26] MEDS: ACETAMINOPHEN 325 MG TABLET (FP) PO SCH ×3 (00:03→12:45)
[2018-02-26] MEDS: CEFAZOLIN 1 GM/D5W 1 GM/50 ML BAG IVPB SCH (02:33)
[2018-02-26 09:22] LABS: HEMATOCRIT 36.9 % (32.4-45.2); HEMOGLOBIN 12.8 GM/dl (10.7-15.3); MCH 29.5 pg (25.7-33.7); MCHC 34.6 g/dl (32.0-36.0); MEAN CELL VOLUME 85.2 fl (80-96); MEAN PLT VOLUME 9.6 fl (7.5-11.1); PLATELET COUNT 250 K/MM3 (134-434); RBC 4.33 M/mm3 (3.60-5.2); RDW 13.6 % (11.6-15.6)
[2018-02-26 09:24] LABS: ANION GAP 6 (8-16); BLOOD UREA NITROGEN 12 mg/dl (7-18); CALCIUM 8.3 mg/dl (8.4-10.2); CHLORIDE 101 mmol/L (98-107); CO2 27 mmol/L (22-28); CREATININE 0.7 mg/dl (0.6-1.3); GLUCOSE,RANDOM 132 mg/dl (74-106); POTASSIUM 3.8 mmol/L (3.5-5.1); SODIUM 134 mmol/L (136-145)
--- NOTE | 2018-02-26 09:24 | PN ---
Progress Note (short form) - Note Progress Note: Surgery POD #1 revision left total knee arthroplasty. Patient seen and examined at bedside, states she had lots of pain last night but is now improving. She denies any CP, SOB, N/V, fever or chills. Vital Signs Temp 98.7 F 02/26/18 06:15 Pulse 94 H 02/26/18 06:15 Resp 18 02/26/18 06:15 BP 115/99 02/26/18 06:15 Pulse Ox 96 02/26/18 06:15 Intake & Output 02/25/18 02/25/18 02/26/18 11:59 23:59 11:59 Intake Total 1200 1350 650 Output Total 740 560 Balance 1200 610 90 Weight 173 lb 172 lb 15.983 oz Intake: IV 1200 900 500 Lactated Ringers Solution 750 500 1,000 ml @ 125 mls/hr IV ASDIR CLINT Rx#: [id number] IVPB 350 50 Oral 100 100 Output: Drainage 240 60 Left Lower Knee 190 60 Urine 500 500 Void 500 500 Other: Voiding Method Bedpan Bowel Movement No Height 5 ft 6 in Body Mass Index (BMI) 27.9 Weight Measurement Method Standing Scale PE: A&Ox3, NAD unlabored resp on RA left knee dressing C/D/I saturated over lateral aspect at drain site. Dressing removed, drain site with saturated dressing but no evidence of active leaking. Drain in good position and functioning well. Incision dressing c/d/i with no d/ c and surrounding tissue intact. diffuse edema throughout appropriate to status. ROM from 0-20 degrees. b/l LE compartments soft, supple and non-tender to palpation with + 2 pedal pulses b/l Dorsi/plantar flexion 5/5. Problem List - Problems (1) Status post revision of total knee Assessment/Plan: POD #1 left revision DEEPTI doing well with drain site d/c now resolved 1) Continue DVT prophylaxis with Aspirin 325mg BID x 6 weeks 2) OOB with walker and assist TTWB 3) encourage IS 4) D/c planning for home potentially tomorrow after drain removed. Code(s): Z96.659 - PRESENCE OF UNSPECIFIED ARTIFICIAL KNEE JOINT
[2018-02-26] MEDS: RANITIDINE HCL 150 MG TABLET (FP) PO SCH (09:32)
[2018-02-26] MEDS: LISINOPRIL 10 MG TABLET (FP) PO SCH (09:32)
[2018-02-26] MEDS: SENNOSIDES/DOCUSATE COMBO (SENNA PLUS) TABLET (UD) PO SCH ×2 (09:32→21:51)
[2018-02-26] MEDS: GABAPENTIN 300 MG CAPSULE (FP) PO SCH ×2 (09:32→21:51)
[2018-02-26] MEDS: PANTOPRAZOLE 40 MG TABLET (FP) PO SCH (09:32)
[2018-02-26] MEDS: MULTIVITAMINS (DAILY MVI) TABLET (FP) PO SCH (09:32)
[2018-02-26] MEDS: ASPIRIN 325 MG TABLET PO SCH ×2 (09:32→21:51)
[2018-02-26] MEDS: HYDROCHLOROTHIAZIDE 12.5 MG CAPSULE (FP) PO SCH (09:32)
[2018-02-26] MEDS ORDERED: PATIENT'S OWN MEDICATION (NON-FORMULARY) (Lisinopril/Hydrochlorothiazide [Lisinopril-Hctz PO SCH (10:00)
--- NOTE | 2018-02-26 10:34 | OP ---
DATE OF OPERATION: 02/25/2018 SURGEON: Renny Alan MD RATING EXAMINER: Rowdy Alan MD and VINAYAK Hinds PREOPERATIVE DIAGNOSIS: Arthrofibrosis following a right total knee arthroplasty with fixed contracture from 30-60 degrees. POSTOPERATIVE DIAGNOSIS: Arthrofibrosis following a right total knee arthroplasty with fixed contracture from 30-60 degrees. OPERATION PERFORMED: 1. Revision right total knee arthroplasty. 2. Wide resection of extensive fibrotic soft tissue much like a tumor resection because of the severe arthrofibrosis. ANESTHESIA: Adductor block with spinal epidural anesthesia. ANTIBIOTICS GIVEN: 2 g Kefzol, 1 g vancomycin preop. OPERATION DETAILS: Patient correctly identified, brought in the operating room. The right lower extremity was prepped routinely, free draped with Betadine scrub solution, wiped with alcohol, Duraprep applied. The timeout was called. Imaging was available for intraoperative evaluation. Preop evaluation, range of movement 30 -60 degrees. Through the original midline incision, this extended proximally as well as distally. The knee could not be entered after a complete subperiosteal dissection of the proximal tibia on the medial side. A longitudinal incision made in the quadriceps tendon, skirting around the patella. The patella was virtually immobile to move laterally or even capsize. We went ahead with a tibial tubercle osteotomy. A coronal-shaped osteotomy was performed approximately 10 cm below the proximal end of the tibial tubercle osteotomy. Opening up the tibial tuberosity , I had been able to complete exposure with most intriguing finding of fibrous tissue growing into the joint itself, into the patellofemoral articulation, as well as the gutters both medial and lateral side. Using a unipolar Bovie as well as blades, extensive amount of this tissue was resected, all sent to the lab for histopathology. The femoral component appeared to be solidly seated, as was the tibial component. There was no macroscopic sign of infection. The tissues were pristine in nature. Using a small oscillating saw, the interval between the metal and cement of the tibial component was cut appropriately all the way around, and the actual working through the tibial tubercle osteotomy enabled a break in the bone between the anterior and medial and lateral sides of the cement mantle of the tibial stem; this enabled an easy extrication of the components. Because of the thickened fibrous tissue on the top of the femur on the lateral side, the proximal corner broke off and this was fixed after holding it with a tenaculum clamp with 1 cancellous AO screw. Once this had been performed, all the proximal cement had been removed, reaming was to size 14 and a size 4 new tibial component inserted with a stemmed component accordingly. The measurements of the universal blade plate was a size 4 and a 14 x 150 mm fluted stem inserted. A 4 x 11 TS poly maintained stability in the coronal and sagittal plane. This component was cemented into position accordingly. The patella was cleared of all fibrous tissue, as was the femur. The knee was placed through a range of movement and found to be very acceptable from 0-120 degrees. Once this had been tested with the tibial tubercle in the clamped position, the tibia was reattached using a lag effect with small fragment cancellous screws and along the medial side of the tibia bone graft which was tamped into position to augment tibial tubercle fixation. A small lateral release was performed in order to ensure no patella tracking abnormality. Closure after thorough lavage and removal of all fibrotic material; first of all, 1/8-inch Hemovac drain was inserted. Closure was as follows: Quadriceps tendon and parapatellar ligaments with 1 Vicryl, subcutaneous 1 and 2-0 Vicryl, skin 3-0 Monocryl with Steri-Strips. Drainage with 1/8-inch Hemovac x1. OVERALL COMMENT: Difficult problem, but all remained well aligned and stable. Postop x-rays were excellent with alignment of the tibia noted. The plan is to place into a CPM machine, keep her partial weightbearing for 6 weeks in a Kimball brace with a locked range of movement from 0-90 to start to enable the tibial tubercle osteotomy to heal solidly. MD YIFAN Mas/[id number] MTDD
[2018-02-27] MEDS: ACETAMINOPHEN 325 MG TABLET (FP) PO SCH ×5 (00:25→12:58)
[2018-02-27 06:10] VITALS: TEMP 98.8
[2018-02-27 08:11] LABS: HEMATOCRIT 36.1 % (32.4-45.2); HEMOGLOBIN 12.4 GM/dl (10.7-15.3); MCH 29.1 pg (25.7-33.7); MCHC 34.3 g/dl (32.0-36.0); MEAN CELL VOLUME 84.9 fl (80-96); PLATELET COUNT 242 K/MM3 (134-434); RBC 4.24 M/mm3 (3.60-5.2); RDW 13.3 % (11.6-15.6); WHITE BLOOD COUNT 13.2 K/mm3 (4.0-10.8)
[2018-02-27 09:12] VITALS: BP 107/63; PULSE 78
[2018-02-27] MEDS: ASPIRIN 325 MG TABLET PO SCH (09:13)
[2018-02-27] MEDS: GABAPENTIN 300 MG CAPSULE (FP) PO SCH (09:14)
[2018-02-27] MEDS: PANTOPRAZOLE 40 MG TABLET (FP) PO SCH (09:14)
[2018-02-27] MEDS: RANITIDINE HCL 150 MG TABLET (FP) PO SCH (09:14)
[2018-02-27] MEDS: MULTIVITAMINS (DAILY MVI) TABLET (FP) PO SCH (09:14)
[2018-02-27] MEDS: LISINOPRIL 10 MG TABLET (FP) PO SCH (09:14)
[2018-02-27] MEDS: HYDROCHLOROTHIAZIDE 12.5 MG CAPSULE (FP) PO SCH (09:14)
[2018-02-27] MEDS: SENNOSIDES/DOCUSATE COMBO (SENNA PLUS) TABLET (UD) PO SCH (09:15)
--- NOTE | 2018-02-27 13:08 | DS ---
"Physical Exam: SUBJECTIVE: POD #2 left total knee revision patient seen and examined at bedside with no complaints. Patient states she is feeling well and pain controlled. She has gotten to 90 degrees on the CPM machine and has been up ambulating with walker-TTWB- and therapy. She denies any CP, SOB, N/V fever or chills. OBJECTIVE: Period Temp Pulse Resp BP Sys/Wallace Pulse Ox Last 24 Hr 98.8 F-99.4 F 76-88 18-19 107-127/63-71 97-99 PHYSICAL EXAM GENERAL: The patient is awake, alert, and fully oriented, in no acute distress. HEAD: Normal with no signs of trauma. EYES: sclera anicteric, conjunctiva clear. NECK: Trachea midline, LUNGS: unlabored resp on RA, no accessory muscle use. EXTREMITIES: Left knee with diffuse edema throughout appropriate to status, no evidence of tracking erythema or collection. Incision c/d/i, steri strips saturated and removed but no active dc. Drain removed wth tip fully intact, pressure dressing applied to drain site. ROM from 0-90 degrees. Incision redressed with Steri strips, Arthrex jump start dressing and natalie wrap. B/L LE compartments soft, supple and non-tender with 2+ pulses, warm, well- perfused, no edema. NEUROLOGICAL: Cranial nerves II through XII grossly intact. Normal speech, gait not observed. PSYCH: Normal mood, normal affect. SKIN: Warm, dry, normal turgor, no rashes or lesions noted. LABS Laboratory Results - last 24 hr 02/27/18 08:00 WBC 13.2 H RBC 4.24 Hgb 12.4 Hct 36.1 MCV 84.9 MCH 29.1 MCHC 34.3 RDW 13.3 Plt Count 242 MPV 9.0 HOSPITAL COURSE: Date of Admission:02/25/18 The patient was admitted to the Med-Surg Unit after an elective repair of their Failed left TKA. Now, s/p Left TKA revision The day of surgery, the patient ambulated the hallways with assistance. Narcotic and non-narcotic pain management control was achieved with an oral and IV approach. POD #2, the surgical drain was removed fully intact and without incident. An xray was obtained post op while in the OR and confirmed hardware placement in left knee/ Tibia, no fractures or dislocations. Maureen-operative IV ABX were administered. DVT prophylaxis was achieved with SCDs , Aspirin and early ambulation. The patient ambulated with Physical Therapy and no services were recommended upon discharge. Narcotic scripts were checked with [facility] prior to escibe. The discharge instructions and an oral pain management plan were reviewed with the patient. All questions answered. Date of Discharge: 02/27/18 Minutes to complete discharge: 25 Discharge Summary Reason For Visit: UNILATERA OA LEFT KNEE Current Active Problems Status post revision of total knee (Acute) Condition: Good - Instructions Diet, Activity, Other Instructions: Dr. Alan Discharge instructions for Knee Replacement Post-Op Instructions: Physical Activity: Physical Therapy will come to your home for the first 5 days. You will be set up with outpatient PT at your first post-operative visit. Use assistive devices for ambulation at all times. TOE TOUCH Weight bearing as tolerated on your operative side. Do not put pillows under your knee. You may place pillows under the heel. Wound care: Leave your surgical dressing in place. Do not change the dressing until seen by your surgeon in the office. No baths or showers. Do not submerge your incision in water. Do not apply any ointments or lotions to your incision. Please call the office if our dressing is soiled/dirty or is falling off. Apply graduated compression stockings (TEDS) to both lower extremities-remove daily for hygiene only. Diet: There are no dietary restrictions: Eat healthy, high-fiber foods. Drink 6 to 8 glasses of liquid each day. This will keep your bowels regular. Pain Management: Any pain prescription medications ordered should be taken as prescribed for moderate to severe pain. Do not take additional Tylenol while taking Percocet. TAKE ASPIRIN 325MG TWO TIMES A DAY FOR A TOTAL OF 6 WEEKS TO PREVENT BLOOD CLOTS. Call Dr. Alan for any of the following: Severe pain not relieved by medications Fever of 101 or higher Excessive bleeding or drainage on the dressing If you experience chest pain or shortness of breath, please seek emergency care immediately. Please call the office at to confirm your post-op appointment for the week following your surgery. [place] prescription monitoring program This report was requested by: Renetta Elizondo | Reference #: [id number] Others' Prescriptions Patient Name: Janis Bennett Date: 1960 Address: [address] [place] [address] [place] [address] Sex: Female Rx Written Rx Dispensed Drug Quantity Days Supply Prescriber Name 01/09/2018 01/12/2018 oxycodone-acetaminophen 5-325 mg tab 30 30 Renny Alan MS, MD Disposition: HOME - Home Medications Comprehensive Discharge Medication List: Ambulatory Orders Diphenhydramine HCl [Benadryl Capsule -] 25 mg PO PRN PRN 10/17/17 Ranitidine HCl 300 mg PO DAILY 10/17/17 Lisinopril/Hydrochlorothiazide [Lisinopril-Hctz 10-12.5 mg Tab] 1 each PO DAILY 01/08/18 Hydrocodone/Acetaminophen [Vicodin Es 7.5-300 mg Tablet] 1 each PO Q4H PRN #20 tablet MDD 6 02/26/18 Aspirin [Aspirin EC] 325 mg PO BID #90 tablet. 02/27/18 Problem List - Problems (1) Status post revision of total knee Assessment/Plan: POD #2 left revision TKA doing well. 1) Continue DVT prophylaxis with Aspirin 325mg BID x 6 weeks 2) OOB with walker and assist TTWB 3) encourage IS 4) D/c planning for home today with Code(s): Z96.659 - PRESENCE OF UNSPECIFIED ARTIFICIAL KNEE JOINT This patient is new to me today: Yes Date on this admission: 02/27/18 Emergency Visit: No Critical Care patient: No - Discharge Referral Referred to [facility] Med P.C.: No"
--- NOTE | 2018-03-02 14:01 | PATH ---
Surgical Pathology Report Patient Name: DARLINE JOSHI Med. Rec. #: [id number] /Age/Gender: 1960 (Age: 57) / F Account: [id number] Location: [facility] MED-SURG Taken: 02/25/2018 Received: 02/25/2018 Reported: 03/02/2018 Physicians: Renny Alan M.D. Specimen(s) Received A: LEFT KNEE EXPLANT B: LEFT KNEE BONE Clinical History Orthofibrosis and contractor of left knee Final Diagnosis A. LEFT KNEE, EXPLANT: HARDWARE, DESCRIBED (GROSS EXAMINATION ONLY). B. KNEE BONE, LEFT, REVISION: FIBROCARTILAGINOUS AND FIBROCOLLAGENOUS TISSUE SHOWING DENSE FIBROSIS. BONE WITH NO PATHOLOGIC FINDINGS. Electronically Signed Renetta Fontaine M.D. Gross Description A. Received fresh labeled "left knee explant," is a 7.0 x 7.0 x 4.7 cm lepe metallic and white plastic foreign body, consistent with a knee explant. No soft tissue is present. No sections are submitted, gross only. B. Received in formalin labeled "left knee bone," is a 7.5 x 6.0 x 1.3 cm aggregate of bone fragments with attached cement material. Commissary Manager sections are submitted in one cassette, following decalcification. 02/26/201802/26/2018
== END 2018-02-27 13:20 | disposition home or self-care (01) | DRG 497 ==
LOC: FM/S 05:57
PROVIDERS: ADMIT Orthopaedic Surgery Orthopaedic Surgery of the Spine; ATTEND Orthopaedic Surgery Orthopaedic Surgery of the Spine
PROC: 0HBKXZZ Excision of Right Lower Leg Skin, External Approach (ICD-10-PCS; 2018-02-25)
PROC: 0QWH04Z Revision of Internal Fixation Device in Left Tibia, Open Approach (ICD-10-PCS; principal; 2018-02-25 08:58)
DX: T84.82XA Fibrosis due to internal orthopedic prosthetic devices, implants and grafts, initial encounter (principal); M24.662 Ankylosis, left knee; M24.561 Contracture, right knee; Y83.8 Other surgical procedures as the cause of abnormal reaction of the patient, or of later complication, without mention of misadventure at the time of the procedure; I10 Essential (primary) hypertension; K21.9 Gastro-esophageal reflux disease without esophagitis
CPT/HCPCS: 36415; 73560-TC-LT-FY; 80048; 85027; 87070; 87075; 87205; 88300-TC; 88304-TC; 88311-TC; 94760; 97116-GP; 97162-GP